=== PATIENT | female | born 1985 | race Asian ===

== ENCOUNTER 2020-12-10 21:49 | Inpatient (IN) | payer BC, MEDICAID ==
[2020-12-10 22:10] VITALS: BMI 23.0
[2020-12-10] MEDS ORDERED: hydrALAZINE 20 MG/ML VIAL SLOW IVP PRN (23:00)
[2020-12-11] MEDS ORDERED: HYDROcodone/Acetaminophen 5/325 mg Tablet PO PRN ×4 (00:51→09:25)
[2020-12-11] MEDS ORDERED: Ondansetron PF 4 MG/2 ML Vial IVP PRN ×3 (00:51→09:25)
[2020-12-11] MEDS ORDERED: Lidocaine 1% (PF) 30 ML VIAL SC PRN (00:51)
[2020-12-11] MEDS ORDERED: Acetaminophen 500 MG TAB PO PRN (00:51)
[2020-12-11] MEDS ORDERED: Promethazine HCl 25 MG/ML VIAL IM PRN ×2 (00:51→06:36)
[2020-12-11] MEDS ORDERED: NS / Oxytocin 40 units/1000ml 1,000 ML IV PRN (00:51)
[2020-12-11] MEDS ORDERED: Butorphanol Tartrate 1 MG/ML VIAL SLOW IVP PRN (00:51)
[2020-12-11] MEDS ORDERED: hydrALAZINE 20 MG/ML VIAL SLOW IVP PRN ×2 (00:51→09:25)
[2020-12-11] MEDS ORDERED: Ibuprofen 800 MG TAB PO PRN (00:51)
[2020-12-11] MEDS ORDERED: Penicillin G Potassium 5 MILL.UNITS in Sodium Chloride 0.9% 100 ML IVPB SCH (01:00)
[2020-12-11] MEDS ORDERED: NS w/ Oxytocin 30 units 500 ML IV PRN (01:07)
[2020-12-11] MEDS ORDERED: Lactated Ringer's 1,000 ML IV SCH ×2 (01:15→02:15)
[2020-12-11] MEDS ORDERED: Fentanyl 4 mcg/Bup 0.1% Cadd 100 ML ONE (01:28)
[2020-12-11 01:31] LABS: Hemoglobin 13.2 g/dL (12.0-15.5); Mean Corpuscular HGB CONC 33.6 g/dL (32.0-36.0); Mean Corpuscular Hemoglobin 31.9 pg (27.0-33.0); Mean Corpuscular Volume 94.9 fl (81.6-98.3); Mean Platelet Volume 11.4 fl (7.4-10.4); Platelet Count 163 10x3/uL (150-450); RBC Distribution Width 12.7 % (11.5-14.5); Red Blood Cell (RBC) Count 4.14 10x6/uL (3.90-5.03); White Blood Cell (WBC) Count 9.2 10x3/uL (3.5-10.5)
[2020-12-11 02:45] LABS: Hep B Surf Ag Non-Reactive S/CO (NonReactive)
[2020-12-11 02:46] LABS: Syphilis Antibody Nonreactive (Nonreactive); Syphilis Antibody Index 0.03 S/CO (<1.00 Non-Reactive)
[2020-12-11 02:49] LABS: HBSAg Index 0.23 S/CO (0-0.99)
[2020-12-11] MEDS: Penicillin G 2.5 MILL.units 2.5 MILL.UNITS in Premix Bag 1 BAG IVPB SCH ×2 (05:01→14:23)
[2020-12-11] MEDS ORDERED: Lactated Ringer's 500 ML IV PRN (06:36)
[2020-12-11] MEDS ORDERED: Acetaminophen 325 MG TAB PO PRN (06:36)
[2020-12-11] MEDS ORDERED: diphenhydrAMINE 50 MG/ML VIAL IVP PRN (06:36)
[2020-12-11] MEDS ORDERED: Naloxone HCl 0.4 mg/ml Vial IVP PRN ×2 (06:36)
[2020-12-11] MEDS ORDERED: Fentanyl 4 mcg/Bupivacaine 0.1% Cassette 100 ML EPIDURAL SCH (06:45)
[2020-12-11] MEDS ORDERED: Communication Order-Pharmacy FS SCH (06:45)
[2020-12-11] MEDS ORDERED: ePHEDrine Sulfate 50 MG/10 ML VIAL SLOW IVP PRN (06:47)
[2020-12-11] MEDS ORDERED: Bupivacaine 0.25% HCL 30 ML VIAL ONE (08:00)
[2020-12-11] MEDS ORDERED: Bisacodyl 10 MG SUPP PR PRN (09:25)
[2020-12-11] MEDS ORDERED: diphenhydrAMINE 25 MG CAP PO PRN (09:25)
[2020-12-11] MEDS ORDERED: Milk Of Magnesia 30 ML UDCUP PO PRN (09:25)
[2020-12-11] MEDS ORDERED: Preparation H Ointment 28 GM TUBE PR PRN (09:25)
[2020-12-11] MEDS ORDERED: Adacel (T-DAP) 0.5 ML SYRINGE IM ONE (09:25)
[2020-12-11] MEDS ORDERED: Lanolin Ointment 7 GM TUBE TOP PRN (09:25)
[2020-12-11] MEDS ORDERED: Benzocaine-Menthol 82.5 ML CAN TOP PRN (09:25)
[2020-12-11] MEDS ORDERED: Docusate Calcium (SURFAK) 240 MG CAP PO SCH (09:45)
[2020-12-11] MEDS ORDERED: NS w/ Oxytocin 30 units 500 ML IVPB SCH (09:45)
[2020-12-11] MEDS ORDERED: Ferrous Sulfate 325 MG TAB PO SCH (09:45)
[2020-12-11] MEDS ORDERED: Prenatal Vitamin 1 TAB PO SCH (09:45)
[2020-12-11] MEDS: Ibuprofen 800 MG TAB PO SCH ×2 (13:14→21:28)
[2020-12-11] MEDS: Ferrous Sulfate 325 MG TAB PO SCH (18:42)
[2020-12-11] MEDS: Docusate Calcium (SURFAK) 240 MG CAP PO SCH (21:28)
[2020-12-12] MEDS: Ibuprofen 800 MG TAB PO SCH ×2 (05:22→14:35)
[2020-12-12] MEDS: Ferrous Sulfate 325 MG TAB PO SCH (08:02)
[2020-12-12] MEDS: Docusate Calcium (SURFAK) 240 MG CAP PO SCH (08:56)
[2020-12-12] MEDS ORDERED: Prenatal Vitamin 1 TAB PO SCH (09:00)
[2020-12-12 12:00] VITALS: BP 105/60; TEMP 98
== END 2020-12-12 14:57 | disposition home or self-care (01) | DRG 807 ==
LOC: CSHLD/OP 21:49 → CSHLD 12-11 02:00 → CSHPP 12-11 10:09
PROVIDERS: ADMIT Obstetrics & Gynecology; ATTEND Obstetrics & Gynecology
PROC: 10E0XZZ Delivery of Products of Conception, External Approach (ICD-10-PCS; principal; 2020-12-11)
PROC: 0HQ9XZZ Repair Perineum Skin, External Approach (ICD-10-PCS; 2020-12-11)
DX: O99.824 Streptococcus B carrier state complicating childbirth (principal); Z37.0 Single live birth; Z3A.38 38 weeks gestation of pregnancy; O70.0 First degree perineal laceration during delivery
CPT/HCPCS: 36415; 51702; 85027; 86780; 86850; 86900; 86901; 87340; 99285; J2540; J2590; J3490; S0020